=== PATIENT | male | born 1950 | race Caucasian/White ===

== ENCOUNTER → 2016-09-20 | Outpatient (CLI) | payer OTHER ==
[~2016-09-20] VITALS: Ht 177.8 cm; Wt 88.5 kg
[~2016-09-20] MED LIST: BENICAR40 MG PO; CARDIZEM CD240 MG PO; OMEPRAZOLE40 MG PO; PROSCAR 5MG TABL5 MG PO; SIMVASTATIN20 MG PO
--- NOTE | ~2016-09-20 | S ---
[facility] [place] [address] SURGICAL PATH RPT PROCEDURE Name: GILLES PRICE Room #: REG [facility] M..#: [id number] Admission: 09/20/16 Date of : 52 Discharge: Report #: [id number] Path Case #: [id number] PATHOLOGY REPORT COLLECTION DATE: 09/20/2016 RECEIVED DATE: 09/20/2016 SUBMITTING PHYS: Dr. Alexandro Hamilton OTHER PHYS: SPECIMEN(S) RECEIVED: A.RUL lung biopsy * * * * * * * * * * * * FINAL DIAGNOSIS: Lung, right upper lobe lung lesion, needle core biopsy: - INVASIVE MODERATELY DIFFERENTIATED ADENOCARCINOMA. COMMENT: Co-review: Dr. Sanam Parker. The findings are telephoned to Dr. Hamilton at 3:40 pm on 09/23/16. (IUV:csd; d/t: 09/23/2016) PATHOLOGIST: Lyubov Cabrera M.D. REPORT ELECTRONICALLY SIGNED BY: Lyubov Cabrera M.D. DATE/TIME: 09/23/2016 15:43 * * * * * * * * * * * * GROSS PATHOLOGY: Received in formalin labeled "Gilles Price RUL lung lesion," are three distinct needle cores of erazo soft tissue ranging from 0.8 to 1.5 cm in length, which are submitted entirely in cassette A1. Multiple unstained slides are ordered and available. (CAA; 09/20/2016) CLINICAL HISTORY: RUL lung lesion/mass INITIAL CPT CODE(S): A; 20288 Professional services performed by [facility] at [facility] [address], [place] [address] Technical services performed by [facility] at [address] [place] [id number]. [facility] [address] [place] [address] SURGICAL PATH RPT PROCEDURE Name: GILLES PRICE Room #: REG ALEJANDRA Yee#: [id number] Admission: 09/20/16 Date of : 52 Discharge: Report #: [id number] Path Case #: [id number] [address] PHONE: [phone] DIRECTOR: Alin Gonzalez M.D. * * * END OF REPORT * * *
[2016-09-20 08:06] LABS: HEMATOCRIT 35.4 % (42.0-52.0); HEMOGLOBIN 11.8 gm/dL (14.0-18.0); MCH 26.5 pg (26.0-34.0); MCHC 33.4 g/dL (28.0-37.0); MCV 79.4 fL (80.0-100.0); RBC 4.46 mil/uL (4.50-6.00); RDW 16.5 % (10.5-14.5); WBC 5.9 thou/uL (4.0-11.0)
[2016-09-20 08:15] LABS: CALCIUM 9.1 mg/dL (8.5-10.1); CREATININE 1.3 mg/dL (0.6-1.3); POTASSIUM 3.5 mmol/L (3.5-5.1)
[2016-09-20 08:18] LABS: APTT 24.7 Seconds (24.5-32.8)
[2016-09-20 08:20] LABS: ALBUMIN 3.9 g/dL (3.4-5.0); TOTAL BILIRUBIN 0.2 mg/dL (<0.1-1.0); TOTAL PROTEIN 7.4 g/dL (6.4-8.2)
== END | disposition home or self-care (01) ==
LOC: CAT 07:21
PROVIDERS: Neuromusculoskeletal Medicine & OMM
DX: C22.7 Other specified carcinomas of liver (principal)